=== PATIENT | female | born 1930 | race Caucasian/White ===

== ENCOUNTER → 2016-07-28 | Outpatient (CLI) | payer MEDICARE, OTHER ==
[~2016-07-28] MED LIST: AMIODARONE IV; AMLODIPINE BESYL5 MG PO; ARIMIDEX DPS1 MG PO; DUONEB DPS3 ML IH; HYDROCHLOROTHIA25 MG PO; HYDROCODON-ACE1 EAC4 PO; KLOR-CON M2020 ME1 PO; LEVOTHYROXINE50 MCG PO; PAROXETINE HCL20 MG PO; PRAVACHOL20 MG PO; THERAPEUTIC MUL1 TAB PO; VITAMIN D1000 UNIT PO
== END | disposition home or self-care (01) ==
LOC: RAD.S 09:57
DX: I50.9 Heart failure, unspecified (principal); R06.02 Shortness of breath; J98.4 Other disorders of lung; J90 Pleural effusion, not elsewhere classified

== ENCOUNTER → 2016-11-10 | Outpatient (CLI) | payer MEDICARE, OTHER | END | disposition home or self-care (01) | LOC: RAD.S 11-02 10:20 | DX: Z12.31 Encounter for screening mammogram for malignant neoplasm of breast (principal); Z85.3 Personal history of malignant neoplasm of breast ==